=== PATIENT | male | born 1975 | race Two or more races ===

== ENCOUNTER → 2024-10-16 | Outpatient (CLI) | payer MEDICAID, SELFPAY ==
--- NOTE | 2024-10-16 13:00 | XR_ITS ---
Examination: CT chest, without intravenous contrast. Sagittal and coronal 2-D reconstructions. Exam date and time: October 16, 2024 1312 hours INDICATIONS: Smoking history 20 years CTDI:vol (mGy) 7.44 DLP: (mGycm) 361 Technique: Multiple 3.0 mm axial sections of the chest to been obtained. Bone and lung density settings are obtained. Sagittal and coronal 2-D reconstructions have been obtained. Low dose protocols were performed. One or more of the following dose reduction techniques were used; automated exposure control, adjustment of the mA and/or KV according to patient size, use of iterative reconstruction technique. Findings: No thoracic aortic aneurysm dilatation Pulmonary artery segments are not enlarged No paratracheal tracheobronchial or bronchopulmonary adenopathy 2 mm pulmonary nodule right upper lobe image 188 2 mm pulmonary nodule left upper lobe image 224 3 mm pleural-based pulmonary nodule left lower lobe image 231 No lobar pneumonia or pulmonary edema No visualized liver or splenic lesion Absent gallbladder IMPRESSION: Noncalcified pulmonary nodules as above, with this study as baseline recommend 1 additional 6 month follow-up CT chest without contrast
== END | disposition home or self-care (01) ==
PROVIDERS: PCP Physician Assistant; Referring Provider Physician Assistant; Visit Provider Physician Assistant
DX: R91.8 Other nonspecific abnormal finding of lung field (principal)
CPT/HCPCS: 71271

== ENCOUNTER → 2025-08-25 | Outpatient (CLI) | payer MEDICAID, SELFPAY ==
--- NOTE | 2025-08-25 10:38 | XR_ITS ---
EXAMINATION: PA lateral chest 2 views TECHNIQUE: Upright PA lateral chest 2 views Date and time: August 25, 2025, 1059 hours, comparison January 24, 2023 INDICATIONS: Shortness of breath 2 days, smoking history FINDINGS: Moderate hyperexpansion Normal heart size No pneumonia or pulmonary edema Moderate osteopenia IMPRESSION: COPD with moderate hyperexpansion
== END | disposition home or self-care (01) ==
PROVIDERS: PCP Physician Assistant; Referring Provider Physician Assistant; Visit Provider Physician Assistant
DX: J44.9 Chronic obstructive pulmonary disease, unspecified (principal)
CPT/HCPCS: 71046